=== PATIENT | female | born 2000 | race Caucasian/White ===

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

== ENCOUNTER 2020-01-09 14:41 | Emergency (ER) | payer OTHER ==
--- NOTE | 2020-01-09 15:39 | ER Document Report ---
ED Medical Screen (RME) - General Chief Complaint: Abdominal Pain Stated Complaint: ABDOMINAL PAIN Time Seen by Provider: 01/09/20 15:35 Mode of Arrival: Ambulatory Information source: Patient Notes: Otherwise healthy 19-year-old female presents emergency department with multiple complaints today. Patient reports last period approximately 3 weeks ago, states she has had a positive home test although the lights were faint. Patient reports that she thinks it is a possibility she may be . Patient also reports foul-smelling vaginal discharge that began last few days ago. Reports intermittent vaginal spotting, states that she needs to find out why she is bleeding. Denies any abdominal pain, nausea, vomiting or diarrhea. I have greeted and performed a rapid initial assessment of this patient. A comprehensive ED assessment and evaluation of the patient, analysis of test results and completion of the medical decision making process will be conducted by additional ED providers. I have specifically instructed the patient or family members with the patient to immediately return to any nursing staff should anything change in the patient's condition or with their chief complaint. TRAVEL OUTSIDE OF THE [place] IN LAST 30 DAYS: No - Related Data Allergies/Adverse Reactions: adhesive Allergy (Verified 01/09/20 15:27) Past Medical History - Social History Frequency of alcohol use: None Drug Abuse: None Renal/ Medical History: Denies: Hx Peritoneal Dialysis - Immunizations Immunizations up to date: Yes Hx Diphtheria, Pertussis, Tetanus Vaccination: Yes Physical Exam - Vital signs Vitals: Temp Pulse Resp BP Pulse Ox 98.5 F 63 20 127/65 H 100 01/09/20 15:14 01/09/20 15:14 01/09/20 15:14 01/09/20 15:14 01/09/20 15:14 Course - Vital Signs Vital signs: Temp Pulse Resp BP Pulse Ox 98.5 F 63 20 127/65 H 100 01/09/20 15:14 01/09/20 15:14 01/09/20 15:14 01/09/20 15:14 01/09/20 15:14
--- NOTE | 2020-01-09 19:16 | ER Document Report ---
ED General - General Chief Complaint: Abdominal Pain Stated Complaint: ABDOMINAL PAIN Time Seen by Provider: 01/09/20 15:35 Mode of Arrival: Ambulatory Information source: Patient TRAVEL OUTSIDE OF THE [place] IN LAST 30 DAYS: No - HPI Notes: Patient states she has been having vaginal "spotting" since the middle of November 2019. She states that she has had to wear pads most days and that this is causing some irritation of her vaginal area. She states that she had a faint positive test at home and is concerned that she may be . Her vaginal pain is a burning sensation. It is moderate. It is worse with movement when she is wearing a pad and better with rest. She denies any type of pain for traumatic intercourse. She denies any recent pregnancies. Patient denies any severe abdominal pain. She denies any fevers chills or sweats. She has had no vomiting. She states that she is not concerned about a cyclic transmitted dise ase. She denies any lesions. There is no significant radiation of the pain. - Related Data Allergies/Adverse Reactions: adhesive Allergy (Verified 01/09/20 15:27) Past Medical History - General Information source: Patient - Social History Smoking Status: Never Smoker Frequency of alcohol use: None Drug Abuse: None Family History: None, Reviewed & Not Pertinent Patient has suicidal ideation: No Patient has homicidal ideation: No Renal/ Medical History: Denies: Hx Peritoneal Dialysis - Immunizations Immunizations up to date: Yes Hx Diphtheria, Pertussis, Tetanus Vaccination: Yes Review of Systems - Review of Systems Constitutional: denies: Chills, Fever Cardiovascular: denies: Chest pain, Palpitations Respiratory: denies: Cough, Short of breath -: Yes All other systems reviewed and negative Physical Exam - Vital signs Vitals: Temp Pulse Resp BP Pulse Ox 98.5 F 63 20 127/65 H 100 01/09/20 15:14 01/09/20 15:14 01/09/20 15:14 01/09/20 15:14 01/09/20 15:14 Interpretation: Normal - General General appearance: Appears well, Alert - HEENT Head: Normocephalic, Atraumatic Eyes: Normal Pupils: PERRL - Respiratory Respiratory status: No respiratory distress Chest status: Nontender Breath sounds: Normal Chest palpation: Normal - Cardiovascular Rhythm: Regular Heart sounds: Normal auscultation Murmur: No - Abdominal Inspection: Normal Distension: No distension Bowel sounds: Normal Tenderness: Nontender Organomegaly: No organomegaly - Back Back: Normal, Nontender - Extremities General upper extremity: Normal inspection, Nontender, Normal color, Normal ROM, Normal temperature General lower extremity: Normal inspection, Nontender, Normal color, Normal ROM, Normal temperature, Normal weight bearing. No: Pretty's sign - Neurological Neuro grossly intact: Yes Cognition: Normal Orientation: AAOx4 [place] Coma Scale Eye Opening: Spontaneous [place] Coma Scale Verbal: Oriented [place] Coma Scale Motor: Obeys Commands [place] Coma Scale Total: 15 Speech: Normal Motor strength normal: LUE, RUE, LLE, RLE Sensory: Normal - Psychological Associated symptoms: Normal affect, Normal mood - Skin Skin Temperature: Warm Skin Moisture: Dry Skin Color: Normal Course - Re-evaluation Re-evalutation: 01/09/20 19:14 Patient presents with complaints of vaginal spotting. She has a negative test here. She states she was mainly concerned with whether or not she was . I offered her treatment with hormonal therapy such as Provera but she declined. She also states that she does not want to have a vaginal exam. She states she prefers to have this done by her DISTRIBUTION ENGINEER. She states she is not concerned about sexual transmitted disease. - Vital Signs Vital signs: Temp Pulse Resp BP Pulse Ox 98.5 F 63 20 127/65 H 100 01/09/20 15:14 01/09/20 15:14 01/09/20 15:14 01/09/20 15:14 01/09/20 15:14 Discharge - Discharge Clinical Impression: Dysfunctional uterine bleeding Condition: Stable Disposition: HOME, SELF-CARE Instructions: Dysfunctional Uterine Bleeding ([facility]) Forms: Return to Work Referrals: JAHAIRA DARDEN MD [ACTIVE STAFF] - Follow up in 3-5 days
[2020-01-09 19:34] VITALS: BP 131/75
== END 2020-01-09 19:30 | disposition home or self-care (01) ==
LOC: ER 14:41
DX: N93.8 Other specified abnormal uterine and vaginal bleeding (principal); Z32.02 Encounter for pregnancy test, result negative; R10.2 Pelvic and perineal pain
CPT/HCPCS: 36415; 84703; 99284

== ENCOUNTER 2020-05-13 14:28 | Day surgery (SDC) | payer OTHER ==
[~2020-05-13 14:28] MED LIST: GLYCOPYRROLATE 1 MG/5 ML VIAL ONE; KETOROLAC TROMETHAMINE 60 MG/2 ML SDV ONE; NEOSTIGMINE METHYLSULFATE 10 MG/10 ML VIAL ONE; ROCURONIUM BROMIDE INJ 50 MG/5 ML VIAL IV ONE; SUCCINYLCHOLINE CHLORIDE INJ 200 MG/10 ML VIAL ONE
--- NOTE | 2020-05-13 15:07 | ER Document Report ---
ED Medical Screen (RME) - General Chief Complaint: Abdominal Pain Stated Complaint: ABDOMINAL PAIN,DIZZINESS Time Seen by Provider: 05/13/20 15:02 Primary Care Provider: BRITTANY BOSS NP [Primary Care Provider] - Follow up as needed Mode of Arrival: Wheelchair Information source: Patient Notes: 19-year-old female presented to ED for complaint of bilateral pelvic and right upper quadrant abdominal pain since morning time. She states she was tested positive for 10 days ago. She is alert oriented respirations regular nonlabored speaking in full sentences. She does have some nausea but no vomiting. Is alert oriented respirations regular nonlabored speaking in full sentences. I have greeted and performed a rapid initial assessment of this patient. A comprehensive ED assessment and evaluation of the patient, analysis of test results and completion of medical decision making process will be conducted by an additional ED providers. TRAVEL OUTSIDE OF THE [place] IN LAST 30 DAYS: No - Related Data Allergies/Adverse Reactions: adhesive Allergy (Verified 01/09/20 15:27) Past Medical History Renal/ Medical History: Denies: Hx Peritoneal Dialysis - Immunizations Immunizations up to date: Yes Hx Diphtheria, Pertussis, Tetanus Vaccination: Yes Physical Exam - Vital signs Vitals: Temp Pulse Resp BP Pulse Ox 98.0 F 68 16 118/69 99 05/13/20 14:37 05/13/20 14:37 05/13/20 14:37 05/13/20 14:37 05/13/20 14:37 Course - Vital Signs Vital signs: Temp Pulse Resp BP Pulse Ox 98.0 F 68 16 118/69 99 05/13/20 14:37 05/13/20 14:37 05/13/20 14:37 05/13/20 14:37 05/13/20 14:37 Doctor's Discharge - Discharge Referrals: BRITTANY BOSS NP [Primary Care Provider] - Follow up as needed
--- NOTE | 2020-05-13 15:18 | ER Document Report ---
ED GI/ - General Chief Complaint: Abdominal Pain Stated Complaint: ABDOMINAL PAIN,DIZZINESS Time Seen by Provider: 05/13/20 15:02 Primary Care Provider: BRITTANY BOSS NP [NURSE PRACTITIONER] - Follow up as needed Mode of Arrival: Wheelchair Notes: CHIEF COMPLAINT: Pelvic pain HPI: 19-year-old female who is a G2, presenting for evaluation of pelvic pain worse on the right but also on the left that began last night feels like a cramping sensation no vaginal discharge or bleeding. Does report some dysuria. Patient denies nausea vomiting. Denies back pain ROS: See HPI - all other systems were reviewed and are otherwise negative Constitutional: no fever or recent illness Eyes: no drainage, no blurred vision ENT: no runny nose, no sore throat Cardiovascular: no chest pain Resp: no SOB, no cough GI: no vomiting, no diarrhea, positive pelvic pain : + dysuria, no vaginal discharge Integumentary: no rash Allergy: no hives Musculoskeletal: no extremity pain or swelling Neurological: no numbness/tingling, no weakness MEDICATIONS: I agree with the patient medications as charted by the RN. ALLERGIES: I agree with the allergies as charted by the RN. PAST MEDICAL HISTORY/PAST SURGICAL HISTORY: Reviewed and agree as charted by RN. SOCIAL HISTORY: Reviewed and agree as charted by RN. FAMILY HISTORY: No significant familial comorbid conditions directly related to patient complaint EXAM: Reviewed vital signs as charted by RN. CONSTITUTIONAL: Alert and oriented and responds appropriately to questions. Well-appearing; well-nourished HEAD: Normocephalic; atraumatic EYES: PERRL; Conjunctivae clear, sclerae non-icteric ENT: normal nose; no rhinorrhea; moist mucous membranes; pharynx without lesions noted NECK: Supple without meningismus; non-tender; no cervical lymphadenopathy, no masses CARD: RRR; no murmurs, no clicks, no rubs, no gallops; symmetric distal pulses RESP: Normal chest excursion without splinting or tachypnea; breath sounds clear and equal bilaterally; no wheezes, no rhonchi, no rales, ABD/GI: Normal bowel sounds; non-distended; soft, there is absolutely no tenderness in the right upper quadrant on palpation. Patient is moderately tender in the right lower quadrant right pelvis as well as in the left pelvis on palpation, no rebound, no guarding; no palpable organomegaly or masses : Female nurse publicity manager present. External genitalia normal. No skin lesions noted. Pelvic Exam: No active bleeding. Small amount of a thick white vaginal discharge is noted. Cervix appears normal. + CMT. No lesions or masses. Uterus difficult to obtain sizing secondary to patient comfort. Right/Left adnexa normal size and tender in bilateral adnexa tender. BACK: The back appears normal and is non-tender to palpation, there is no CVA tenderness EXT: Normal ROM in all joints; non-tender to palpation; no cyanosis, no effusions, no edema SKIN: Normal color for age and race; warm; dry; good turgor; no acute lesions noted NEURO: Moves all extremities equally; Motor and sensory function intact PSYCH: The patient's mood and manner are appropriate. Grooming and personal hygiene are appropriate. MDM: 19-year-old female presenting for pelvic pain began last night. Believes she is approximately 1 to 2 months . Had a positive test 10 days ago. No vaginal bleeding, cervix is closed. Patient is moderately tender on her exam, does have history of ovarian cysts. Will obtain pelvic ultrasound. She has absolutely no right upper quadrant tenderness, right upper quadrant ultrasound was ordered in triage will MA. TRAVEL OUTSIDE OF THE [place] IN LAST 30 DAYS: No - Related Data Allergies/Adverse Reactions: adhesive Allergy (Verified 01/09/20 15:27) Past Medical History - General Information source: Patient - Social History Smoking Status: Never Smoker Chew tobacco use (# tins/day): No Frequency of alcohol use: None Drug Abuse: None Family History: None, Reviewed & Not Pertinent Patient has homicidal ideation: No Renal/ Medical History: Denies: Hx Peritoneal Dialysis - Immunizations Immunizations up to date: Yes Hx Diphtheria, Pertussis, Tetanus Vaccination: Yes Physical Exam - Vital signs Vitals: Temp Pulse Resp BP Pulse Ox 98.0 F 68 16 118/69 99 05/13/20 14:37 05/13/20 14:37 05/13/20 14:37 05/13/20 14:37 05/13/20 14:37 Course - Re-evaluation Re-evalutation: 05/13/20 17:46 Patient last known menstrual cycle that was normal was in February of this year. She has not had anything to eat since 9 AM this morning. I have a call out to the MEDICAL BILLING CLERK as there is some concern for ectopic on her ultrasound 05/13/20 18:[address] Tavo Madera, OB. Case was discussed, he will see the patient 05/13/20 18:[address] Pedraza, Attending - Vital Signs Vital signs: Temp Pulse Resp BP Pulse Ox 98.0 F 68 16 118/69 99 05/13/20 15:14 05/13/20 14:37 05/13/20 14:37 05/13/20 14:37 05/13/20 14:37 - Laboratory Result Diagrams: 05/13/20 15:20 05/13/20 15:20 Laboratory results interpreted by me: 05/13/20 05/13/20 05/13/20 15:20 15:20 15:20 Hgb 15.6 H Lymph % (Auto) 11.6 L Absolute Neuts (auto) 8.4 H Seg Neutrophils % 81.1 H AST 33 H Beta HCG, Quant 28203.00 H Ur Leukocyte Esterase TRACE H Discharge - Discharge Clinical Impression: Ruptured ectopic Condition: Stable Disposition: ADMITTED INPATIENT Admitting Provider: Surgicalist - Dr. Tavo Madera Unit Admitted: OR Referrals: BRITTANY BOSS NP [NURSE PRACTITIONER] - Follow up as needed
[2020-05-13 15:53] LABS: ABSOLUTE EOSINOPHILS # (AUTO) 0.1 10^3/uL (0.0-0.6); ABSOLUTE LYMPHOCYTES (AUTO) 1.2 10^3/uL (0.5-4.7); ABSOLUTE MONOCYTES (AUTO) 0.7 10^3/uL (0.1-1.4); ABSOLUTE NEUT (AUTO) 8.4 10^3/uL (1.7-8.2); BASOPHILS % (AUTO) 0.4 % (0-2); EOSINOPHILS % (AUTO) 0.5 % (0-6); HEMATOCRIT 45.7 % (36.0-47.0); HEMOGLOBIN 15.6 g/dL (12.0-15.5); LYMPHOCYTES % (AUTO) 11.6 % (13-45); MEAN CORPUSCULAR HGB CONC 34.1 g/dL (32.0-36.0); MEAN CORPUSCULAR VOLUME 91 fl (80-97); MONOCYTES % (AUTO) 6.4 % (3-13); PLATELET COUNT 203 10^3/uL (150-450); RED BLOOD COUNT 5.03 10^6/uL (3.72-5.28); RED CELL DISTRIBUTION WIDTH 13.4 % (11.5-14.0); SEGMENTED NEUTROPHILS % (AUTO) 81.1 % (42-78); TOTAL CELLS COUNTED % (AUTO) 100 %; WHITE BLOOD COUNT 10.4 10^3/uL (4.0-10.5)
[2020-05-13] MEDS ORDERED: MORPHINE SULFATE 10 MG/ML INJ IV ONE (15:53)
[2020-05-13 15:54] LABS: APPEARANCE,URINE CLEAR; BILIRUBIN,URINE NEGATIVE (NEGATIVE); COLOR,URINE YELLOW; GLUCOSE, URINE NEGATIVE (NEGATIVE); KETONES,URINE NEGATIVE (NEGATIVE); LEUKOCYTE ESTERASE,URINE TRACE (NEGATIVE); NITRITE,URINE NEGATIVE (NEGATIVE); PROTEIN,URINE NEGATIVE (NEGATIVE); URINE SPECIFIC GRAVITY 1.008; UROBILINOGEN,URINE NEGATIVE mg/dL (<2.0)
[2020-05-13] MEDS ORDERED: ONDANSETRON HCL INJ/PF 4 MG/2 ML SDV IV ONE (15:54)
[2020-05-13 16:11] LABS: ALBUMIN 4.5 g/dL (3.7-5.6); ALKALINE PHOSPHATASE 83 U/L (50-135); ANION GAP 9 (5-19); ASPARTATE AMINO TRANSFERASE 33 U/L (5-30); BILIRUBIN,TOTAL 0.6 mg/dL (0.2-1.3); BLOOD UREA NITROGEN 8 mg/dL (7-20); CARBON DIOXIDE 24 mmol/L (22-30); CHLORIDE 105 mmol/L (98-107); GLUCOSE 103 mg/dL (75-110); POTASSIUM 3.9 mmol/L (3.6-5.0); TOTAL PROTEIN 7.5 g/dL (6.3-8.2)
[2020-05-13 16:16] LABS: BACTERIA (WET MOUNT) 3+ BACTERIA SEEN; EPITHELIALS (WET MOUNT) 3+ EPITHELIALS SEEN; RBCS (WET MOUNT) RARE RBCS SEEN; T.VAGINALIS (WET MOUNT) NO TRICHOMONAS SEEN; WBCS (WET MOUNT) 2+ WBCS SEEN; YEAST (WET MOUNT) NO YEAST SEEN
--- NOTE | 2020-05-13 17:32 | RADIOLOGY REPORT (SQ) ---
EXAM DESCRIPTION: U/S OB TRANSVAGINAL W/O DOP IMAGES COMPLETED DATE/TIME: 05/13/2020 5:10 pm REASON FOR STUDY: Bilateral pelvic pain positive 10 days a COMPARISON: None. TECHNIQUE: Transvaginal static and realtime grayscale images acquired of the pelvis. Additional mouna cted spectral and color Doppler images recorded. All images stored on PACs. CLINICAL AGE: 8 weeks BHC,000 LIMITATIONS: None. FINDINGS: UTERUS: No visualized intrauterine . RIGHT ADNEXA: Normal ovary with normal vascular flow. No adnexal free fluid. 4.8 x 4.9 x 4.5 cm cyst. LEFT ADNEXA: Normal ovary with normal vascular flow. Moderate left adnexal free fluid with complex 2.4 cm thick-walled cystic structure, possible ectopic . OTHER: No other significant finding. IMPRESSION: Moderate left adnexal free fluid with complex 2.4 cm thick-walled cystic structure, poss ible ectopic . Ob consultation recommended. ECTOPIC CANNOT BE EXCLUDED. FOLLOW-UP ULTRASOUND AND SERIAL BHCG LEVELS STRONGLY RECOMMENDED TO ACCURATELY ASSESS STATU S. COMMENT: The findings were sent to the Radiology Results Communication Center at 17:26 on 05/13/2020 to be communicated to a licensed caregiver. TECHNICAL DOCUMENTATION: JOB ID: [id number] [id number] 2010 [employer]- All Rights Reserved Reading location - IP/workstation name: [employer] Messenger (MM)
[2020-05-13 17:42] LABS: CHLAM PCR NOT DETECTED (NOT DETECT)
--- NOTE | 2020-05-13 18:49 | PDOC H&P ---
History of Present Illness Admission Date/PCP: 05/13/20 18:22 Patient complains of: Pelvic pain. History of Present Illness: KIMBERLY HEMPHILL is a 19 year old female presenting with LMP at the end of March and the acute onset of pelvic pain. Quant is 14k and the uterus is empty with fluid in the left adenexa. Past Medical History LMP: March Gynecological Infection: No Obstetrical History: none - Previous vaginal delivery in 2018 Past Surgical History Past Surgical History: Reports: None Social History Smoking Status: Never Smoker Electronic Cigarette use?: No Family History Family History: None, Reviewed & Not Pertinent Parental Family History Reviewed: Yes Children Family History Reviewed: Yes Sibling(s) Family History Reviewed.: Yes Medication/Allergy Home Medications: Cyclobenzaprine HCl [Flexeril 10 mg Tablet] 5 mg PO TID #9 tablet 12/03/17 Vit Calc,Iron,Folic [ Vitamins] 1 tab PO DAILY 06/25/18 Ibuprofen [Motrin 800 mg Tablet] 800 mg PO Q8 PRN #60 tablet 09/06/18 Famotidine [Pepcid 20 mg Tablet] 20 mg PO BID #14 tablet 04/22/19 Ondansetron [Zofran Odt 4 mg Tablet] 1 - 2 tab PO Q4H PRN #15 tab.rapdis 04/22/19 Naproxen 500 mg PO BID PRN #20 tablet 08/26/19 Erythromycin Base [E-Mycin 0.5% Oph Ointment 3.5 gm] 1 applic RT_EYE QID #1 tube 10/25/19 Allergies/Adverse Reactions: adhesive Allergy (Verified 01/09/20 15:27) Review of Systems Constitutional: ABSENT: chills, fever(s), headache(s), weight gain, weight loss Eyes: ABSENT: visual disturbances Ears: ABSENT: hearing changes Cardiovascular: ABSENT: chest pain, dyspnea on exertion, edema, orthropnea, palpitations Respiratory: ABSENT: cough, hemoptysis Gastrointestinal: ABSENT: abdominal pain, constipation, diarrhea, hematemesis, hematochezia, nausea, vomiting Genitourinary: ABSENT: dysuria, hematuria Musculoskeletal: ABSENT: joint swelling Integumentary: ABSENT: rash, wounds Neurological: ABSENT: abnormal gait, abnormal speech, confusion, dizziness, focal weakness, syncope Psychiatric: ABSENT: anxiety, depression, homidical ideation, suicidal ideation Endocrine: ABSENT: cold intolerance, heat intolerance, polydipsia, polyuria Hematologic/Lymphatic: ABSENT: easy bleeding, easy bruising Physical Exam - Physical Exam Vital Signs: Temp Pulse Resp BP Pulse Ox 98.4 F 77 18 129/70 H 100 05/13/20 18:30 05/13/20 18:30 05/13/20 18:30 05/13/20 18:30 05/13/20 18:30 Intake & Output 05/12/20 05/13/20 05/14/20 06:59 06:59 06:59 Weight 82.554 kg General appearance: PRESENT: cooperative, mild distress Head exam: PRESENT: atraumatic Mouth exam: PRESENT: moist Neck exam: PRESENT: full ROM. ABSENT: carotid bruit, JVD, lymphadenopathy, thyromegaly Respiratory exam: PRESENT: unlabored Cardiovascular exam: PRESENT: systolic murmur Pulses: PRESENT: normal dorsalis pedis pul, +2 pedal pulses bilateral Vascular exam: PRESENT: normal capillary refill GI/Abdominal exam: PRESENT: tenderness - Tender across the pelvix Rectal exam: PRESENT: deferred Gentrourinary exam: PRESENT: other - deferred to the or Extremities exam: PRESENT: full ROM. ABSENT: calf tenderness, clubbing, pedal edema Neurological exam: PRESENT: alert, awake, oriented to person, oriented to place, oriented to time, oriented to situation, CN II-XII grossly intact. ABSENT: motor sensory deficit Psychiatric exam: PRESENT: appropriate affect, normal mood. ABSENT: homicidal ideation, suicidal ideation Result Laboratory Results: 05/13/20 15:20 05/13/20 15:20 05/13/20 05/13/20 05/13/20 15:20 15:20 15:20 WBC 10.4 RBC 5.03 Hgb 15.6 H Hct 45.7 MCV 91 MCH 31.0 MCHC 34.1 RDW 13.4 Plt Count 203 Seg Neutrophils % 81.1 H Sodium 138.4 Potassium 3.9 Chloride 105 Carbon Dioxide 24 Anion Gap 9 BUN 8 Creatinine 0.63 Est GFR ( Amer) > 60 Glucose 103 Calcium 10.0 Total Bilirubin 0.6 AST 33 H Alkaline Phosphatase 83 Total Protein 7.5 Albumin 4.5 Urine Color Urine Appearance Urine pH Ur Specific [place] Urine Protein Urine Glucose (UA) Urine Ketones Urine Blood Urine Nitrite Ur Leukocyte Esterase Urine WBC (Auto) Urine RBC (Auto) Blood Type A POSITIVE 05/13/20 15:20 WBC RBC Hgb Hct MCV MCH MCHC RDW Plt Count Seg Neutrophils % Sodium Potassium Chloride Carbon Dioxide Anion Gap BUN Creatinine Est GFR ( Amer) Glucose Calcium Total Bilirubin AST Alkaline Phosphatase Total Protein Albumin Urine Color YELLOW Urine Appearance CLEAR Urine pH 7.0 Ur Specific [place] 1.008 Urine Protein NEGATIVE Urine Glucose (UA) NEGATIVE Urine Ketones NEGATIVE Urine Blood NEGATIVE Urine Nitrite NEGATIVE Ur Leukocyte Esterase TRACE H Urine WBC (Auto) 5 Urine RBC (Auto) 1 Blood Type Impressions: Obstetrics Ultrasound 05/13/20 15:05 IMPRESSION: Moderate left adnexal free fluid with complex 2.4 cm thick-walled cystic structure, possible ectopic . Ob consultation recommended. ECTOPIC CANNOT BE EXCLUDED. FOLLOW-UP ULTRASOUND AND SERIAL BHCG LEVELS STRONGLY RECOMMENDED TO ACCURATELY ASSESS STATUS. Assessment & Plan - Diagnosis (1) Ruptured ectopic Is this a current diagnosis for this admission?: Yes Plan: Plan to proceed with a laparoscopy and address the ectopic - Time Time Spent: 30 to 50 Minutes
[2020-05-13] MEDS ORDERED: ONDANSETRON HCL INJ/PF 4 MG/2 ML SDV ONE (19:08)
[2020-05-13] MEDS ORDERED: MORPHINE SULFATE 10 MG/ML INJ ONE (19:08)
[2020-05-13] MEDS ORDERED: PROPOFOL INJ 200 MG/20 ML VIAL IV ONE (19:08)
[2020-05-13] MEDS ORDERED: FENTANYL CITRATE INJ/PF 100 MCG/2 ML AMPUL ONE (19:08)
[2020-05-13] MEDS ORDERED: MIDAZOLAM 2 MG/2 ML INJ ONE (19:08)
[2020-05-13] MEDS ORDERED: SUGAMMADEX SODIUM 200 MG/2 ML SDV IV ONE (19:08)
[2020-05-13] MEDS ORDERED: DEXAMETHASONE SOD PHOSPHATE INJ 4 MG/1 ML VIAL ONE (19:08)
[2020-05-13] MEDS ORDERED: METHYLERGONOVINE MALEATE INJ/PF 0.2 MG/1 ML AMPULE ONE (19:09)
[2020-05-13] MEDS ORDERED: OXYTOCIN 10 UNIT/ML VIAL ONE (19:09)
[2020-05-13] MEDS ORDERED: MISOPROSTOL 0.2 MG TABLET ONE (19:45)
[2020-05-13] MEDS ORDERED: DEXTROSE 50%-WATER 25 GM/50 ML DISP.SYRIN IV PRN ×2 (21:28)
[2020-05-13] MEDS ORDERED: DEXTROSE 40% GEL 15 GM TUBE PO PRN ×2 (21:28)
[2020-05-13] MEDS ORDERED: OXYCODONE-ACETAMINOPHEN 5-325 MG TABLET PO PRN ×3 (21:28→21:39)
[2020-05-13] MEDS ORDERED: GLUCAGON,HUMAN RECOMB 1 MG INJ SUBCUT PRN (21:28)
[2020-05-13] MEDS ORDERED: HYDROMORPHONE HCL INJ/PF 2 MG/ML AMPULE IV PRN (21:28)
[2020-05-13] MEDS ORDERED: RINGERS SOLUTION,LACTATED 1,000 ML IV PRN (21:28)
[2020-05-13] MEDS ORDERED: ACETAMINOPHEN 1,000 MG/100 ML RTUPB IV PRN (21:28)
[2020-05-13] MEDS ORDERED: SIMETHICONE 80 MG TAB.CHEW PO PRN (21:28)
[2020-05-13] MEDS ORDERED: PROMETHAZINE HCL INJ 25 MG/1 ML VIAL IV PRN ×2 (21:28→21:39)
[2020-05-13] MEDS ORDERED: FENTANYL CITRATE INJ/PF 100 MCG/2 ML AMPUL IV PRN ×3 (21:39)
[2020-05-13] MEDS ORDERED: ONDANSETRON HCL INJ/PF 4 MG/2 ML SDV IV PRN (21:39)
[2020-05-13] MEDS ORDERED: DIPHENHYDRAMINE HCL 50 MG/ML VIAL IV PRN (21:39)
[2020-05-13] MEDS ORDERED: MORPHINE SULFATE 10 MG/ML INJ IV PRN (21:39)
[2020-05-13] MEDS ORDERED: MEPERIDINE HCL/PF INJ 25 MG/1 ML DISP.SYRIN IV PRN (21:39)
--- NOTE | 2020-05-13 21:39 | Operative Report ---
Operative Report DATE OF SURGERY: 05/13/20 PREOPERATIVE DIAGNOSIS: Ruptured right ectopic POSTOPERATIVE DIAGNOSIS: Bleeding lesion on the left uterosacral ligament. This may be a ectopic in the peritoneum over the left uterosacral ligament. OPERATION: Laparoscopy with evacuation of blood from pelvis and biopsy of left uterosacral ligament bleeding lesion. FloSeal placement over the bleeding area. SURGEON: BESSY GEIGER ANESTHESIA: GA TISSUE REMOVED OR ALTERED: Bleeding lesion at the left uterosacral ligament area COMPLICATIONS: None ESTIMATED BLOOD LOSS: 150 cc INTRAOPERATIVE FINDINGS: Patient has a right ovarian cyst a normal-appearing uterus normal-appearing fallopian tubes and a normal-appearing left ovary. There is bleeding over the peritoneum overlying the left uterosacral ligament. This is directly behind the left ovary. PROCEDURE: The patient was taken the OR placed in supine position. General anesthesia was induced. She is placed in a dorsolithotomy position using Cody stirrups. Her abdomen perineum and vagina were prepared and draped in a sterile fashion. Her bladder was drained with red rubber catheter. An incision was made at the umbilicus and the natural umbilical defect was identified and dilated with a Kiki clamp allowing placement of a port. The abdomen was insufflated with CO2 gas. The scope was inserted and appropriate placement was determined. A suprapubic incision was made and a suprapubic port was placed under laparoscopic visualization. A left lateral port was also placed under laparoscopic visualization. The pelvis was inspected. There was a large amount of blood in the pelvis and this was evacuated with the heat treating bluer aspirator. Both fallopian tubes appeared normal there is a large cyst on the right ovary and the left ovary appeared normal. The uterus appeared normal behind the ovary on the left was a peritoneal lesion that was bleeding. There was clot and tissue present around this area and several small pieces of the tissue were removed and sent for specimen. The clot and tissue were evacuated with the heat treating bluer aspirator and this appeared to be where all the bleeding was coming from on the left side. After cleaning up the lesion there was still quite a bit of oozing from this area and FloSeal was placed to stop the bleeding. Photos were taken throughout the case. The gas was allowed to escape from the abdomen. The ports were removed under laparoscopic visualization. The umbilical port and scope were removed at the same time. The fascia at the umbilicus was closed with a 2-0 Vicryl stitch and skin closed with 4-0 undyed Vicryl suture at all 3 sites. She was extubated in the operating room and taken recovery room in stable condition. The bleeding lesion is thought to be possibly a peritoneal ectopic. This is very unusual and I will keep her in the hospital to follow this and follow the serial quant hCGs. Thank you
[2020-05-13] MEDS ORDERED: DIPHENHYDRAMINE HCL 50 MG/ML VIAL ONE (21:48)
[2020-05-14] MEDS ORDERED: DIPHENHYDRAMINE HCL 25 MG CAPSULE PO ONE (00:30)
[2020-05-14] MEDS: OXYCODONE-ACETAMINOPHEN 5-325 MG TABLET PO PRN ×2 (02:41→09:54)
[2020-05-14] MEDS ORDERED: DIPHENHYDRAMINE HCL 25 MG CAPSULE PO SCH (06:00)
[2020-05-14 06:59] LABS: HEMATOCRIT 39.2 % (36.0-47.0); MEAN CORPUSCULAR HEMOGLOBIN 31.1 pg (27.0-33.4); MEAN CORPUSCULAR HGB CONC 34.5 g/dL (32.0-36.0); MEAN CORPUSCULAR VOLUME 90 fl (80-97); PLATELET COUNT 176 10^3/uL (150-450); RED BLOOD COUNT 4.35 10^6/uL (3.72-5.28); RED CELL DISTRIBUTION WIDTH 12.8 % (11.5-14.0); WHITE BLOOD COUNT 9.8 10^3/uL (4.0-10.5)
[2020-05-14 07:16] LABS: HEMOGLOBIN 13.5 g/dL (12.0-15.5)
--- NOTE | 2020-05-14 08:01 | PDOC DISCHARGE SUMMARY ---
Impression - Admit/DC Date/PCP Admission Date/Primary Care Provider: 05/13/20 18:22 Discharge Date: 05/14/20 - Discharge Diagnosis (1) Ruptured ectopic Is this a current diagnosis for this admission?: Yes - Assessment Summary: She presented with a ruptured ectopic from the ER. Laparoscopy was done and a peritoneal left ectopic was found. She is doing well post op and will be sent home to rest. Followup in the office in a week. - Additional Information Resuscitation Status: Full Code Discharge Diet: As Tolerated Discharge Activity: Slowly Increase Activity Referrals: BRITTANY BOSS, PIG CASTING MACHINE OPERATOR [NURSE PRACTITIONER] - Follow up as needed Prescriptions: Oxycodone HCl/Acetaminophen [Percocet 5-325 mg Tablet] 1 tab PO Q4HP PRN 7 Days #28 tablet PRN Reason: Home Medications: Oxycodone HCl/Acetaminophen [Percocet 5-325 mg Tablet] 1 tab PO Q4HP PRN 7 Days #28 tablet 05/14/20 History of Present Illiness History of Present Illness: She presents with pelvic pain Physical Exam - Physical Exam Vital Signs: Temp Pulse Resp BP Pulse Ox 97.4 F 55 L 16 106/51 L 99 05/14/20 07:17 05/14/20 07:17 05/14/20 07:17 05/14/20 07:17 05/14/20 07:17 Intake & Output 05/13/20 05/14/20 05/15/20 06:59 06:59 06:59 Intake Total 1500 Output Total 850 Balance 650 Weight 80.8 kg Results Laboratory Results: WBC 9.8 10^3/uL (4.0-10.5) 05/14/20 06:37 RBC 4.35 10^6/uL (3.72-5.28) 05/14/20 06:37 Hgb 13.5 g/dL (12.0-15.5) D 05/14/20 06:37 Hct 39.2 % (36.0-47.0) 05/14/20 06:37 MCV 90 fl (80-97) 05/14/20 06:37 MCH 31.1 pg (27.0-33.4) 05/14/20 06:37 MCHC 34.5 g/dL (32.0-36.0) 05/14/20 06:37 RDW 12.8 % (11.5-14.0) 05/14/20 06:37 Plt Count 176 10^3/uL (150-450) 05/14/20 06:37 Lymph % (Auto) 11.6 % (13-45) L 05/13/20 15:20 [place] % (Auto) 6.4 % (3-13) 05/13/20 15:20 Eos % (Auto) 0.5 % (0-6) 05/13/20 15:20 Baso % (Auto) 0.4 % (0-2) 05/13/20 15:20 Absolute Neuts (auto) 8.4 10^3/uL (1.7-8.2) H 05/13/20 15:20 Absolute Lymphs (auto) 1.2 10^3/uL (0.5-4.7) 05/13/20 15:20 Absolute Monos (auto) 0.7 10^3/uL (0.1-1.4) 05/13/20 15:20 Absolute Eos (auto) 0.1 10^3/uL (0.0-0.6) 05/13/20 15:20 Absolute Basos (auto) 0.0 10^3/uL (0.0-0.2) 05/13/20 15:20 Seg Neutrophils % 81.1 % (42-78) H 05/13/20 15:20 Sodium 138.4 mmol/L (137-145) 05/13/20 15:20 Potassium 3.9 mmol/L (3.6-5.0) 05/13/20 15:20 Chloride 105 mmol/L (98-107) 05/13/20 15:20 Carbon Dioxide 24 mmol/L (22-30) 05/13/20 15:20 Anion Gap 9 (5-19) 05/13/20 15:20 BUN 8 mg/dL (7-20) 05/13/20 15:20 Creatinine 0.63 mg/dL (0.52-1.25) 05/13/20 15:20 Est GFR ( Amer) > 60 (>60) 05/13/20 15:20 Est GFR (MDRD) Non-Af > 60 (>60) 05/13/20 15:20 Glucose 103 mg/dL (75-110) 05/13/20 15:20 Calcium 10.0 mg/dL (8.4-10.2) 05/13/20 15:20 Total Bilirubin 0.6 mg/dL (0.2-1.3) 05/13/20 15:20 Direct Bilirubin 0.0 mg/dL (0.0-0.4) 05/13/20 15:20 Neonat Total Bilirubin Not Reportable 05/13/20 15:20 Neonat Direct Bilirubin Not Reportable 05/13/20 15:20 Neonat Indirect Bili Not Reportable 05/13/20 15:20 AST 33 U/L (5-30) H 05/13/20 15:20 ALT 35 U/L (<35) 05/13/20 15:20 Alkaline Phosphatase 83 U/L (50-135) 05/13/20 15:20 Total Protein 7.5 g/dL (6.3-8.2) 05/13/20 15:20 Albumin 4.5 g/dL (3.7-5.6) 05/13/20 15:20 Beta HCG, Quant 5591.50 mIU/mL (0.0-6.15) H 05/14/20 06:37 Beta HCG, Quant Cancelled 05/14/20 06:37 Total Beta HCG Cancelled 05/14/20 06:37 Total Beta HCG POSITIVE (NEGATIVE) 05/14/20 06:37 Urine Color YELLOW 05/13/20 15:20 Urine Appearance CLEAR 05/13/20 15:20 Urine pH 7.0 (5.0-9.0) 05/13/20 15:20 Ur Specific [place] 1.008 05/13/20 15:20 Urine Protein NEGATIVE mg/dL (NEGATIVE) 05/13/20 15:20 Urine Glucose (UA) NEGATIVE mg/dL (NEGATIVE) 05/13/20 15:20 Urine Ketones NEGATIVE mg/dL (NEGATIVE) 05/13/20 15:20 Urine Blood NEGATIVE (NEGATIVE) 05/13/20 15:20 Urine Nitrite NEGATIVE (NEGATIVE) 05/13/20 15:20 Urine Bilirubin NEGATIVE (NEGATIVE) 05/13/20 15:20 Urine Urobilinogen NEGATIVE mg/dL (<2.0) 05/13/20 15:20 Ur Leukocyte Esterase TRACE (NEGATIVE) H 05/13/20 15:20 Urine WBC (Auto) 5 /HPF 05/13/20 15:20 Urine RBC (Auto) 1 /HPF 05/13/20 15:20 Urine Bacteria (Auto) TRACE /HPF 05/13/20 15:20 Squamous Epi Cells Auto 4 /HPF 05/13/20 15:20 Urine Mucus (Auto) RARE /LPF 05/13/20 15:20 Urine Ascorbic Acid NEGATIVE (NEGATIVE) 05/13/20 15:20 Epi Cells (Wet Prep) 3+ EPITHELIALS SEEN 05/13/20 15:53 Bacteria (Wet Prep) 3+ BACTERIA SEEN 05/13/20 15:53 Trichomonas (Wet Prep) NO TRICHOMONAS SEEN 05/13/20 15:53 Vaginal WBC 2+ WBCS SEEN 05/13/20 15:53 Vaginal RBC RARE RBCS SEEN 05/13/20 15:53 Vaginal Yeast NO YEAST SEEN 05/13/20 15:53 Chlamydia DNA (PCR) NOT DETECTED (NOT DETECT) 05/13/20 15:53 N.gonorrhoeae DNA (PCR) NOT DETECTED (NOT DETECT) 05/13/20 15:53 Blood Type A POSITIVE 05/13/20 18:02 Antibody Screen NEGATIVE 05/13/20 18:02 Rhogam Indicated RHOGAM NOT INDICATED 05/13/20 15:20 Impressions: Obstetrics Ultrasound 05/13/20 15:05 IMPRESSION: Moderate left adnexal free fluid with complex 2.4 cm thick-walled cystic structure, possible ectopic . Ob consultation recommended. ECTOPIC CANNOT BE EXCLUDED. FOLLOW-UP ULTRASOUND AND SERIAL BHCG LEVELS STRONGLY RECOMMENDED TO ACCURATELY ASSESS STATUS. Stroke Is this a Stroke Patient?: No Acute Heart Failure - Is this a Heart Failure Patient?: No
[2020-05-14] MEDS ORDERED: DIPHENHYDRAMINE HCL 25 MG CAPSULE PO PRN (08:03)
[2020-05-14 09:46] VITALS: BP 129/70
== END 2020-05-14 10:51 | disposition home or self-care (01) ==
LOC: ER 14:28 → UNDOADMIN 18:22 → EH 18:22 → OROUT 22:19 → EH 22:19 → 2N 22:19 → OROUT 05-14 10:51 → UNDODISIN 05-14 10:51
PROVIDERS: ATTEND Obstetrics & Gynecology
DX: N94.89 Other specified conditions associated with female genital organs and menstrual cycle (principal); R10.2 Pelvic and perineal pain; Z79.899 Other long term (current) drug therapy; Z91.040 Latex allergy status
CPT/HCPCS: 99285; 99291; 96374; 96375; 86900; 86901; 36415; 87086; 87210; 86850; 84702; 85025; 85027; 87088; 80053; 81001; 87491; 87591; 88305 ×2; 76817; 94799; 99140; 00840; 49322; J2250; J3490 ×3; J1100; J1200; J1885; J3010; J2210; J2270; J2710; J1170; J0330; J2405; J7120; J2704; 840; J2590